=== PATIENT | male | born 1990 | race Hispanic/Latino ===

== ENCOUNTER 2018-08-03 16:08 | Emergency (ER) | payer SELFPAY | END 2018-08-03 16:38 | disposition home or self-care (01) | LOC: ERS 16:08 | DX: T78.40XA Allergy, unspecified, initial encounter (principal); L25.9 Unspecified contact dermatitis, unspecified cause | CPT/HCPCS: 99282 ==

== ENCOUNTER 2019-02-14 17:48 | Emergency (ER) | payer SELFPAY ==
[2019-02-14] MEDS ORDERED: Acetaminophen 500 MG TAB ONE (17:57)
[2019-02-14] MEDS ORDERED: Dexamethasone 4 mg/ml Vial ONE (18:00)
== END 2019-02-14 18:45 | disposition home or self-care (01) ==
LOC: ERS 17:48
DX: J03.90 Acute tonsillitis, unspecified (principal); F17.210 Nicotine dependence, cigarettes, uncomplicated
CPT/HCPCS: 87081; 87430; 99283; J1100